=== PATIENT | male | born 1950 | race Caucasian/White ===

== ENCOUNTER 2017-06-06 10:07 | Emergency (ER) | payer BC ==
[2017-06-06 10:30] VITALS: RESP 16; TEMP 97.9
--- NOTE | 2017-06-06 11:00 | EDPHY ---
General - History Smoking Status: Never smoked Narrative: CHIEF COMPLAINT: Back pain HISTORY OF PRESENT ILLNESS: Patient complains of pain under the right scapula. This started originally on Tuesday. It has been constant duration. [id number]. Worse with palpation and movement. Sometimes worse when sitting up. No radiating pain. No shortness of breath. No chest pain. No lower extremity erythema edema or pain. No midline tenderness of the back. No saddle anesthesia. No incontinence of bowel or bladder. No trauma or injury. He has attempted some remedies at home that were minimally helpful. It is no worse with exertion but no better with exertion. He went to urgent care today and they sent him to our facility for higher level of care. REVIEW OF SYSTEMS: Ten systems reviewed and are negative unless otherwise noted in the HPI PCP: Dr. Miller SPECIALISTS: [employer] Dr. Newsoem PAST MEDICAL HISTORY: Asthma, GERD, PAST SURGICAL HISTORY: None SOCIAL HISTORY: Nonsmoker. Occasional alcohol. No illicit substance use. Works and lives here locally FAMILY HISTORY: Noncontributory EXAMINATION General Appearance: Alert, no distress Head: normocephalic, atraumatic Eyes: Pupils equal and round, no conjunctival pallor or injection ENT, Mouth: Mucous membranes moist Neck: Normal inspection, supple, non-tender Respiratory: Lungs are clear to auscultation no wheezing, rhonchi or crackles Cardiovascular: Regular rate and rhythm. No murmur Gastrointestinal: Abdomen is soft and nontender Back: Mild soft tissue tenderness into the right scapula that is difficult to reproduce. No crepitus, step-off or deformity, no midline tenderness. no bony abnormalities Neurological: GCS 15. A&O, nonfocal, normal gait. Strength is symmetric in all 4 limbs. Skin: Warm and dry, no rash Extremities: Nontender, no pedal edema Psychiatric: Mood and affect normal DIFFERENTIAL DIAGNOSES: Including but not limited to musculoskeletal strain, PE, pneumonia, pneumonitis , fracture, radiculopathy, aneurysm MDM: 10:55 a.m. Right back pain underneath the scapula without chest pain or shortness of breath. Vital signs stable. Chest x-ray and cardiac laboratory studies have been ordered. EKG ordered. He is in no acute distress. Vital signs were well within normal limits 11:45 a.m. Laboratory studies test are negative, this includes a negative troponin negative D-dimer. Chest x-ray is unremarkable. I discussed with Dr. Kenyon Jacobs. He recommends that we proceed with CT scan of the chest for further imaging. This has been ordered. 1:[address] scan of the chest has been read by Dr. Velarde. He informed me that there are no acute findings on the CT scan. He reviewed the area of concern for the patient with me on the phone and cannot see anything abnormal. Dr. Jacobs will evaluate the patient. 2:00 p.m. Patient has been evaluated by Dr. Jacobs as well. There is no reproducible pain that we can find. There is no abnormality on CT scan. No abnormality on chest x-ray. No abnormality on laboratories or EKG. This does not appear to be cardiac in etiology. Possibly musculoskeletal an etiology. Discharged home with ibuprofen and Flexeril. Continue with warm compresses. Follow up with primary care physician for further care. Return to ER for any shortness of breath or chest pain. The patient is comfortable with this plan. He is discharged home stable condition. (Noah Delgado) Medical Decision Making: I also saw the patient in the emergency department. I reviewed the history of several days of pain to the right shoulder blade area. He tells me no trauma. It is worse with sitting and better with leaning back against good support. No anterior chest discomfort or trouble breathing. I reviewed the patient's labs. By my exam the patient is slightly tender to palpation to the medial aspect of the right lower scapula but not significantly so. Breath sounds are normal. Cardiac exam is normal. In light of normal labs, EKG, CT scan I have considered acute coronary syndrome , pulmonary embolus, aortic dissection but this all appears normal. I think that this is likely muscular (Kenyon Jacobs) - Diagnostics EKG Interpretation: EKG interpreted by me shows normal sinus rhythm with normal interval. There is left axis deviation. Otherwise QRS shows possible left anterior fascicular block. ST-T segments are normal there is no significant ST elevation or depression. No arrhythmia. The rate is 64 (Kenyon Jacobs) - Objective Vital Signs: Initial Vital Signs Temperature (C) 97.9 F 06/06/17 10:27 Heart Rate 77 06/06/17 10:27 Respiratory Rate 16 06/06/17 10:27 Blood Pressure 148/92 H 06/06/17 10:27 O2 Sat (%) 98 06/06/17 10:27 O2 Delivery Mode Room Air Allergies/Adverse Reactions: No Known Allergies Allergy (Unverified 09/11/10 14:28) Home Medications: Medication Instructions Recorded ADVAIR HFA 115-21 MCG INHALER 09/11/10 Beconase Aq 09/11/10 Cyclobenzaprine [Flexeril 10 MG 10 mg PO TID PRN #15 tab 06/06/17 (*)] Laboratory Results: Laboratory Results 06/06/17 11:00 06/06/17 11:00 Medications Given: Discontinued Medications Sodium Chloride (Ns) 1,000 mls @ 0 mls/hr IV EDNOW ONE; Wide Open PRN Reason: Protocol Stop: 06/06/17 11:59 Last Admin: 06/06/17 12:07 Dose: 1,000 mls Departure - Departure Disposition: Home, Routine, Self-Care Clinical Impression: Musculoskeletal back pain Condition: Good Instructions: Musculoskeletal Pain (ED), Thoracic Pain (ED) Additional Instructions: 1. Warm compresses as needed, 20 minutes on 20 minutes off 2. Ibuprofen 600 mg every 8 hours as needed 3. Flexeril as prescribed as needed 4. ED precautions as discussed 5. Follow up with primary care physician Referrals: Demetria Miller MD [Primary Care Provider] - As per Instructions Prescriptions: Cyclobenzaprine [Flexeril 10 MG (*)] 10 mg PO TID PRN #15 tab PRN Reason: Spasms
--- NOTE | 2017-06-06 11:02 | CPEKG ---
Heart Rate: 64 RR Interval: 938 P-R Interval: 188 QRSD Interval: 102 QT Interval: 424 QTC Interval: 438 P [place]: 52 QRS [place]: -49 T Wave [place]: 32 EKG Severity - ABNORMAL ECG - EKG Impression: SINUS RHYTHM EKG Impression: LAD, CONSIDER LEFT ANTERIOR FASCICULAR BLOCK Electronically Signed By: Kenyon Jacobs 06-Jun-2017 15:13:31
[2017-06-06 11:12] LABS: % IMMATURE GRANULYOCYTES 0.1 % (0.0-1.1); ABSOLUTE IMMATURE GRANULOCYTES 0.01 10^3/uL (0.00-0.10); ADD DIFF? NO; ADD MORPH? NO; ADD SCAN? NO; ATYPICAL LYMPHOCYTE FLAG 10 (0-99); FRAGMENT RBC FLAG 0 (0-99); HEMATOCRIT 47.5 % (40.0-51.0); HEMOGLOBIN 17.3 g/dL (13.7-17.5); LEFT SHIFT FLG 0 (0-99); LIPEMIA HEMOLYSIS FLAG 90 (0-99); MEAN CELL HEMOGLOBIN 34.2 pg (27.9-34.1); MEAN CELL HEMOGLOBIN CONCENTR. 36.4 g/dL (32.4-36.7); MEAN CELL VOLUME 93.9 fL (81.5-99.8); MEAN PLATELET VOLUME 10.8 fL (8.7-11.7); PLATELET CLUMPS FLAG 0 (0-99); PLATELET COUNT 236 10^3/uL (150-400); RED BLOOD CELL COUNT 5.06 10^6/uL (4.40-6.38); RED CELL DISTRIBUTION WIDTH 12.8 % (11.5-15.2)
[2017-06-06 11:21] LABS: INR 0.97 (0.83-1.16); PROTIME(PATIENT) 12.8 SEC (12.0-15.0)
[2017-06-06 11:22] LABS: APTT 29.5 SEC (23.0-38.0)
[2017-06-06 11:24] LABS: ALANINE AMINOTRANSFERASE 41 IU/L (21-72); ALBUMIN 4.3 g/dL (3.5-5.0); ALKALINE PHOSPHATASE 73 IU/L (38-126); ANION GAP 12 mEq/L (8-16); ASPARTATE AMINOTRANSFERASE 26 IU/L (17-59); BILIRUBIN,TOTAL 0.8 mg/dL (0.1-1.4); BILIRUBIN-CONJUGATED 0.2 mg/dL (0.0-0.5); BILIRUBIN-UNCONJUGATED 0.6 mg/dL (0.0-1.1); CALCIUM 10.4 mg/dL (8.5-10.4); CARBON DIOXIDE 24 mEq/l (22-31); CHLORIDE 104 mEq/L (97-110); GLOMERULAR FILTRATION RATE > 60; GLUCOSE 93 mg/dL (70-100); POTASSIUM 3.9 mEq/L (3.5-5.2); SODIUM 140 mEq/L (134-144); TOTAL PROTEIN 7.7 g/dL (6.3-8.2)
[2017-06-06 11:35] LABS: TROPONIN I < 0.012 ng/mL (0.000-0.034)
[2017-06-06] MEDS ORDERED: NS 1,000 ML IV ONE (11:58)
[2017-06-06 12:09] VITALS: O2SAT 96
[2017-06-06] MEDS ORDERED: IOPAMIDOL (ISOVUE 370) 100 ML BTL IV ONE (12:30)
[2017-06-06 13:48] VITALS: BP 128/87; PULSE 59
== END 2017-06-06 13:48 | disposition home or self-care (01) ==
DX: M54.9 Dorsalgia, unspecified (principal); J45.909 Unspecified asthma, uncomplicated
CPT/HCPCS: Q9967